=== PATIENT | female | born 1965 | race Hispanic/Latino ===

== ENCOUNTER 2017-01-21 06:05 | Day surgery (SDC) | payer BC ==
[2016-08-29 11:03] VITALS: BMI 21.9
[2017-01-21 06:55] LABS: BLOOD UREA NITROGEN 18 mg/dL (7-21); CALCIUM 9.8 mg/dL (8.4-10.5); GFR AFRICAN-AMERICAN > 60; GFR NON-AFRICAN AMERICAN > 60
[2017-01-21 06:57] LABS: INR 1.06 (0.93-1.08); PARTIAL THROMBOPLASTIN TIME 25.5 Seconds (23.7-30.8); PROTHROMBIN TIME 11.4 Seconds (9.9-11.8)
[2017-01-21] MEDS ORDERED: Lidocaine 2% Inj (20ml) ONE (07:00)
[2017-01-21] MEDS ORDERED: Nitroglycerin 50mg in D5W 50 MG/250 ML BOTTLE IV ONE (07:01)
[2017-01-21 07:25] LABS: BASO # 0.02 K/mm3 (0.0-2.0); BASO % 0.4 % (0.0-3.0); EOS # 0.1 (0.0-0.7); EOS % 2.5 % (1.5-5.0); GRAN # 2.63 (1.4-6.5); GRAN % 51.5 % (50.0-68.0); LYMPH # 1.9 (1.2-3.4); MEAN CORPUSCULAR HEMOGLOBIN 26.7 pg (25.0-35.0); MEAN CORPUSCULAR HGB CONC 33.4 g/dl (31.0-37.0); MEAN PLATELET VOLUME 10.5 fl (7.0-11.0); MONO # 0.4 (0.1-0.6); MONO % 8.6 % (1.0-6.0); PLATELET COUNT 272 10^3/uL (120.0-450.0); RBC 4.86 10^6/uL (3.5-6.1); WHITE BLOOD COUNT 5.1 10^3/ul (4.5-11.0)
[2017-01-21] MEDS ORDERED: Midazolam 2 MG/2 ML VIAL ONE (07:40)
[2017-01-21] MEDS ORDERED: Bacitracin 500 Units/gm Oint Foilpak UD TOP ONE (08:48)
[2017-01-21] MEDS ORDERED: Sodium Chloride 0.9% 1,000 ML IV SCH (09:00)
[2017-01-21 09:27] VITALS: TEMP 98
[2017-01-21 10:47] VITALS: O2SAT 99
[2017-01-21] MEDS ORDERED: Bacitracin 500 Units/gm Oint Foilpak UD ONE (11:21)
[2017-01-21 12:00] VITALS: BP 117/72; PULSE 61; RESP 18
--- NOTE | 2017-01-21 18:38 | CARD ---
APPROVED REPORT Procedure(s) performed: Left Heart Catheterization HISTORY The patient is a 51 year-old female with a history of : chronic lung disease, previous diagnostic cath, C/o chest pain and abnormal stress test. INDICATION The indication(s) include : positive stress test. CASE TECHNIQUE The patient was brought electively to the Cardiac Catheterization Laboratory in a fasting state and was prepped and draped in a sterile manner. The left wrist was infiltrated with 2% Lidocaine subcutaneous anesthesia. A 6 Fr Glidesheath (Radial) sheath was inserted into the left radial artery without difficulty. Coronary angiography was performed using coronary diagnostic catheters. The left coronary system was accessed and visualized with a Diagnostic ,5 Fr JL 3.5 catheter. The right coronary system was accessed and visualized with a Diagnostic ,5 Fr AR 1 MOD catheter. The left ventricle was accessed and visualized with a 5 Fr Pigtail 145 (Angled) catheter. Left ventricular/Aortic Valve gradient assessed on pullback. Left ventriculogram was performed in MARTINEZ projection. Closure device was deployed with a Fr TR Band (Regular) without any complications. The patient tolerated the procedure well and there were no complications associated with the procedure. Vessel Analysis The patient's coronary anatomy is right dominant. The left main coronary artery is a medium size vessel with intimal irregularities and without significant stenosis. The left main bifurcates to the left anterior descending and circumflex. The left anterior descending artery is a medium size vessel with diffuse calcification noted throughout this vessel and without significant stenosis. There is a 30% stenosis in the mid segment. proximal LAD has 20% stenosis The first diagonal branch is a medium size vessel with diffuse calcification noted throughout this vessel and without significant stenosis. There is a 70-80% stenosis in the ostial segment. The circumflex artery is a medium size vessel with diffuse calcification noted throughout this vessel and without significant stenosis. The first obtuse marginal branch is a medium size vessel with diffuse calcification noted throughout this vessel and without significant stenosis. The right coronary artery is a large size vessel with diffuse calcification noted throughout this vessel and without significant stenosis. superior take off The right posterior descending artery is a medium size vessel with diffuse calcification noted throughout this vessel and without significant stenosis. Left Ventricle The left ventricle is normal in size with normal contractility. There was no cardiomyopathy. The left ventricular ejection fraction is estimated to be 65%. The left ventricular end diastolic pressure is 18 mmHg. There was no gradient across the aortic valve upon pullback. Conclusion Non obst CAD limited to ostial D1 70-80% stenosis, Not suitable for PCI Preserved Lv Fx. EF-65%, EDp18 Recommendations Aggressive Medical TherapyCardiac Risk Reduction Program Cc; Drs. Antonio/ Gina.
== END 2017-01-21 13:30 | disposition home or self-care (01) ==
LOC: CATH 06:05
PROVIDERS: ATTEND Internal Medicine Cardiovascular Disease
DX: I25.119 Atherosclerotic heart disease of native coronary artery with unspecified angina pectoris (principal); I10 Essential (primary) hypertension; J45.909 Unspecified asthma, uncomplicated; J44.9 Chronic obstructive pulmonary disease, unspecified
CPT/HCPCS: 36415; 80048; 85025; 85610; 85730; 86850; 86900; 93458; 99152; C1769; C1887 ×3; J1644 ×2; J2250; J3010; J7040 ×2; Q9967